=== PATIENT | female | born 1985 | race Caucasian/White ===

== ENCOUNTER 2021-03-21 18:44 | Emergency (ER) | payer BC, SELFPAY ==
[2021-03-21 18:53] VITALS: BP 153/99; PULSE 96; RESP 20; TEMP 36.8; O2SAT 98; BMI 36.6
--- NOTE | 2021-03-21 19:06 | XR_ITS ---
PROCEDURE INFORMATION: Exam: XR Chest Exam date and time: 03/21/21 07:06 PM Age: 35 years old Clinical indication: Patient HX: Cough, congestion, sore throat since Thursday. TECHNIQUE: Imaging protocol: XR of the chest. Views: 2 views. COMPARISON: No relevant prior studies available. FINDINGS: Lungs: Unremarkable. No consolidation. Pleural spaces: Unremarkable. No pleural effusion. No pneumothorax. Heart/Mediastinum: Unremarkable. No cardiomegaly. Bones/joints: Unremarkable. IMPRESSION: No acute findings.
[2021-03-21 19:32] LABS: UTC Strep Screen (Rapid) Negative (Negative)
--- NOTE | 2021-03-21 19:45 | HMH.EDUTC ---
[facility] [place] Clinical Impression: Acute bronchitis Qualifiers: Bronchitis organism: unspecified organism Qualified Code(s): J20.9 - Acute bronchitis, unspecified Disposition: Home, Self-Care Condition on Discharge: Good Instructions: DI for Acute Bronchitis Additional Instructions: Drink plenty of fluids. Take tylenol or ibuprofen for pain or fever. Continue to take the medications as directed that you are on. Start the oral antibiotics (azithromycin) in the morning. I prescribed you some promethazine cough syrup. Don't take the new cough syrup and the one that you already have at the same time. Follow up with your regular doctor. GO TO THE ER FOR ANY WORSENING SYMPTOMS Prescriptions: Promethazine/Dextromethorphan [Promethazine-Dm Syrup] 5 ml PO Q6HP PRN #240 syrup PRN Reason: Cough Transmission Status: [facility] Azithromycin [Z-Josué 250mg Tab*] 250 mg PO UD DOSE PK #6 tab Transmission Status: Re[facility] by [facility] Referrals: Luis Parks [Primary Care Provider] - Forms: Work/School Release Time of Disposition: 19:50 Medical Decision Making - Medical Records Medical records reviewed: No: I reviewed the patient's medical records. - Jose Inquiry Pt receiving controlled substance: No Vital Signs: 03/21/21 18:53 03/21/21 19:46 Temperature 98.2 F 98 F Temperature Source Oral Pulse Rate 91 H Pulse Rate [Right] 96 H Respiratory Rate 20 20 Blood Pressure 148/92 H Blood Pressure [Right Arm] 153/99 H Blood Pressure Mean [Right Arm] 117 Blood Pressure Source [Right Arm] Automatic Cuff Blood Pressure Position [Right Arm] Sitting 02 Sat by Pulse Oximetry 98 Oxygen Delivery Method Room Air - Lab Data Lab results reviewed: Yes: I reviewed the patient's lab results. Lab Results 03/21/21 19:18: Strep Scn Rapid Clinic Negative Orders (Tests/Meds): ED MEDICATIONS Discontinued Medications Generic Name Dose Route Start Last Admin Trade Name Freq PRN Reason Stop Dose Admin Albuterol Sulfate 2.5 mg 03/21/21 19:08 03/21/21 19:10 Albuterol 0.083% 2.5 Mg/3 Ml Neb IH 03/21/21 19:09 2.5 mg ONCE ONE Administration Ceftriaxone Sodium 1 gm 03/21/21 19:33 03/21/21 19:40 Ceftriaxone 1gm Vial IM 03/21/21 19:34 1 gm ONCE ONE Administration Protocol Lidocaine HCl 0 ml 03/21/21 19:33 03/21/21 19:39 Lidocaine 1% 5ml Pf Vial IM 03/21/21 19:34 2.5 ml ONCE ONE Administration Ondansetron HCl 4 mg 03/21/21 19:07 03/21/21 19:10 Ondansetron 4mg Odt SL 03/21/21 19:08 4 mg ONCE ONE Administration ORDERS Category Date Time Status Strep Screen Confirmation Stat Micro 03/21/21 19:18 Received [facility] [place] HPI - General Stated complaint: cough, possible bronchitis Time Seen by Provider: 03/21/21 19:45 Mode of Arrival: Ambulatory Source of Information: Patient Limitations: No Limitations Description of Symptoms (Recalled from Triage Doc. by RN): pt c/o a cough, sore throat and sinus pressure. pt was covid tested tues. and it was negative. pt was seen at [facility] and given bromphed, a prednisone pack, and albuterol inhalder q6prn. pt states durinig her coughing fits she ends up gagging and throwing up or losing continance of her bladder. HEENT Symptoms (Recalled from RN notes): Yes (sore throat and sinus pressure) Resp Symptoms (Recalled from RN notes): Yes (cough) Skin Symptoms (Recalled from RN notes): No MS Symptoms (Recalled from RN notes): No Functional Status (Recalled from RN notes): na - History of Present Illness Provider Complaint: She states that she has been coughing very frequently for the past 2 days. She was tested for covid-19 (results were negative) by her pcp and started on steroids and bromfed cough syrup 2 days ago. She states that she has continued to cough. She denies any shortness of breath. She denies chest pain except when she is having a coughing spell. - Related Data Ho
[2021-03-21 19:46] VITALS: BP 148/92; PULSE 91; RESP 20; TEMP 36.6
== END 2021-03-21 20:04 | disposition home or self-care (01) ==
PROVIDERS: Emergency Provider Nurse Practitioner Family; PCP Family Medicine
DX: J20.9 Acute bronchitis, unspecified (principal); F33.1 Major depressive disorder, recurrent, moderate
CPT/HCPCS: 71046; 87880; 96372; 99202; G0463